=== PATIENT | male | born 1980 | race Caucasian/White ===

== ENCOUNTER 2016-07-10 17:54 | Emergency (ER) | payer OTHER ==
[~2016-07-10] VITALS: Ht 182.9 cm; Wt 95.3 kg
[~2016-07-10 17:54] MED LIST: ACETAMINOPHEN-1 EAC1 PO; EFFEXOR 5050 MG/1 T1 PO; LITHIUM CARBON150 MG PO; NORFLEX100 MG PO; ROBAXIN500 MG PO; ULTRAM 50MG TAB50 MG PO
[2016-07-10] MEDS ORDERED: IBUPROFEN 800800 M1 PO (18:02)
[2016-07-10] MEDS ORDERED: HYDROCODONE-AP1 EAC6 PO (18:02)
[2016-07-10] MEDS ORDERED: ROBAXIN500 MG PO (19:49)
[2016-07-10] MEDS ORDERED: NAPROSYN500 MG PO (19:49)
[2016-07-10 20:10] VITALS: BP 141/93
== END 2016-07-10 20:10 | disposition home or self-care (01) ==
LOC: ER 17:54
DX: S61.212A Laceration without foreign body of right middle finger without damage to nail, initial encounter (principal); S61.214A Laceration without foreign body of right ring finger without damage to nail, initial encounter; S39.012A Strain of muscle, fascia and tendon of lower back, initial encounter; S63.501A Unspecified sprain of right wrist, initial encounter; F32.9 Major depressive disorder, single episode, unspecified; F17.220 Nicotine dependence, chewing tobacco, uncomplicated; F10.99 Alcohol use, unspecified with unspecified alcohol-induced disorder; Z88.5 Allergy status to narcotic agent; Z88.8 Allergy status to other drugs, medicaments and biological substances; V43.02XA Car driver injured in collision with other type car in nontraffic accident, initial encounter; Y93.89 Activity, other specified; Y92.89 Other specified places as the place of occurrence of the external cause; Y99.8 Other external cause status